=== PATIENT | female | born 1995 | race Caucasian/White ===

== ENCOUNTER → 2017-05-22 | Outpatient (CLI) | payer BC | END | disposition home or self-care (01) | LOC: YCFC.O 17:04 | PROVIDERS: ATTEND Nurse Practitioner Family | DX: E06.3 Autoimmune thyroiditis (principal); E66.9 Obesity, unspecified ==

== ENCOUNTER 2021-01-06 00:57 | Emergency (ER) | payer SELFPAY ==
--- NOTE | 2021-01-06 01:25 | ED.PDOC ---
History of Present Illness - General Chief Complaint: Blood Pressure Problem Stated Complaint: elevated blood pressure Time Seen by Provider: 01/06/21 01:17 Additional Information: Patient is a 25-year-old female who presents to the ED with chief complaint of hypertension. 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 Shortly after that she felt some slight tingling in her fingers and the nurses aide took her blood pressure and her systolic was in the 170s and she was referred to the ED for evaluation. Patient essentially feels back to normal now and is asymptomatic. Patient indicates she has a known history of hypertension but does not take any medication because she does not have insurance. Patient denies nausea, vomiting, fever, chills, shortness of breath, chest pain. Patient has no other medical issues other than known essential hypertension and asthma. - History of Present Illness Allergies/Adverse Reactions: Allergies NO KNOWN ALLERGY Allergy (Verified 05/06/15 19:41) Home Medications: Ambulatory Orders Lisinopril 10 mg PO QAM #30 tab 01/06/21 Review of Systems - Review of Systems Constitutional: States: no symptoms reported. Denies: chills, fever, malaise, weakness EENTM: States: no symptoms reported Respiratory: States: no symptoms reported. Denies: cough, short of breath Cardiology: States: no symptoms reported. Denies: chest pain, palpitations Gastrointestinal/Abdominal: States: no symptoms reported. Denies: abdominal pain, nausea, vomiting Genitourinary: States: no symptoms reported. Denies: dysuria Skin: States: no symptoms reported. Denies: rash Neurological: States: no symptoms reported. Denies: depressed, headache, numbness All other Systems: Reviewed and Negative Past Medical History (General) - Patient Medical History Hx Seizures: No Hx Stroke: No Hx Dementia: No Hx Asthma: No Hx of COPD: No Hx Cardiac Disorders: No Hx Congestive Heart Failure: No Hx Pacemaker: No Hx Hypertension: Yes - Not currently taking medications. Hx Thyroid Disease: No Hx Diabetes: No Hx Gastroesophageal Reflux: No Hx Renal Disease: No Hx Cancer: No Hx of HIV: No Hx Hepatitis C: No Hx MRSA: No Surgical History: no surgical history - Vaccination History Hx Tetanus, Diphtheria Vaccination: No Hx Influenza Vaccination: No Hx Pneumococcal Vaccination: No - Social History Hx Tobacco Use: Yes - Pack a day Hx Chewing Tobacco Use: No Hx Alcohol Use: Yes Hx Substance Use: No Hx Substance Use Treatment: No Hx Depression: No Hx Physical Abuse: No Hx Emotional Abuse: No Hx Suspected Abuse: No - Female History Patient is a Female of Child Bearing Age (10 -59 yrs old): Yes Hx Last Menstrual Period: 07/28/13 Patient : No Expected Date of Delivery:: 05/03/14 Family Medical History - Family History Mother Family History: Unknown Living Status: Still Living Physical Exam - Physical Exam General Appearance: Alert, Comfortable, No apparent distress, Obese Eye Exam: bilateral normal Ears, Nose, Throat: normal ENT inspection, normal pharynx Neck: non-tender, full range of motion, supple, normal inspection Respiratory: chest non-tender, lungs clear, normal breath sounds, no respiratory distress, no accessory muscle use Cardiovascular/Chest: normal peripheral pulses, regular rate, rhythm, no edema, no gallop, no JVD Peripheral Pulses: radial,right: 2+, radial,left: 2+ Extremity: normal range of motion, normal inspection 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 I suspect that her tachycardia and transient hypertension was precipitated by her albuterol use. Patient's lungs are completely clear and she is no longer short of breath is having no asthma symptoms. Patient has known hypertension but is not taking any medications and I discussed with her that I will prescribe an inexpensive starter blood pressure medicine for her, lisinopril and she will follow-up with a clinic for continued care. There is no indication for formal ED work-up today, patient has a normal neurologic exam. Vital signs stable, patient is NAD and looks clinically well and I believe is safe for discharge with outpatient follow-up. Follow-up instructions, discharge instructions and return to ED precautions discussed with patient. Patient voices understanding and willingness to comply with instructions. All questions answered. Patient is happy with plan. 01/06/21 01:45 EKG: Normal sinus rhythm, rate 95, normal axis, normal QRS, normal ST segment, normal T waves, negative STEMI. Departure - Departure Clinical Impression: Essential hypertension Time of Disposition: 01:32 Disposition: Discharge to Home or Self Care Condition: Good Departure Forms: ED Discharge - Pt. Copy, Patient Portal Self Enrollment Instructions: DI for High Blood Pressure, High Blood Pressure (DC) Referrals: Mesha Ariza NP [Primary Care Provider] - 1 Week Prescriptions: Lisinopril 10 mg PO QAM #30 tab Home Medications: Ambulatory Orders Lisinopril 10 mg PO QAM #30 tab 01/06/21
[2021-01-06 01:27] VITALS: BP 144/91
[2021-01-06] MEDS ORDERED: LISINOPRIL 10 MG TAB PO ONE (01:31)
[2021-01-06 01:54] VITALS: TEMP 97; O2SAT 97
== END 2021-01-06 01:54 | disposition home or self-care (01) ==
LOC: ER 00:57
DX: I10 Essential (primary) hypertension (principal); J45.909 Unspecified asthma, uncomplicated; R20.8 Other disturbances of skin sensation; Z87.891 Personal history of nicotine dependence